=== PATIENT | female | born 1940 | race Caucasian/White ===

== ENCOUNTER → 2022-07-27 11:29 | Outpatient (BNVA) | payer MEDICARE, SELFPAY | PROVIDERS: Visit Provider Nurse Practitioner Family | DX: M25.511 Pain in right shoulder (principal); W19.XXXA Unspecified fall, initial encounter; Z68.27 Body mass index [BMI] 27.0-27.9, adult | CPT/HCPCS: 73030 ==

== ENCOUNTER → 2024-03-08 15:36 | Outpatient (BNVA) | payer MEDICARE, SELFPAY | PROVIDERS: PCP Nurse Practitioner Family; Visit Provider Nurse Practitioner Family | DX: R52 Pain, unspecified (principal); N39.0 Urinary tract infection, site not specified | CPT/HCPCS: 81000; 87086 ==

== ENCOUNTER → 2024-06-19 09:51 | Outpatient (BNVA) | payer MEDICARE, SELFPAY | PROVIDERS: PCP Nurse Practitioner Family; Visit Provider Nurse Practitioner Family | DX: J02.9 Acute pharyngitis, unspecified (principal); U07.1 COVID-19 | CPT/HCPCS: 87071; 87400; 87426; 87880 ==

== ENCOUNTER 2024-09-11 13:10 | Outpatient (CLI) | payer MEDICARE, SELFPAY ==
--- NOTE | 2024-09-11 13:23 | XR_ITS ---
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 FINDINGS: The L1-L4 bone mineral density measures 1.036 g/cm2. This corresponds to a T score score of -1.2 and Z score of 1.0. Left femoral neck bone mineral density measures 0.846 g/cm2. This corresponds to a T score of -1.3 an d Z score of 1.2. Right femoral neck bone mineral density measures 0.914 g/cm2. This corresponds to a T score -0.7of an d Z score of 1.8. Mean femoral neck bone mineral density measures 0.880 g/cm2. This corresponds to a T score of -1.0 an d Z score of 1.5. XR/XR DEXA axial skeleton* [id number] IMPRESSION: Osteopenia lumbar spine. Osteopenia femoral necks at the lower end of the range . Patient's FRAX calculated 10 year probability for major osteoporotic fracture i s 32.2% and osteoporotic hip fracture is 22.3%.
== END 2024-09-11 13:11 | disposition home or self-care (01) ==
PROVIDERS: PCP Nurse Practitioner Family; Visit Provider Family Medicine
DX: Z13.820 Encounter for screening for osteoporosis (principal); M81.0 Age-related osteoporosis without current pathological fracture; M85.80 Other specified disorders of bone density and structure, unspecified site
CPT/HCPCS: 77080

== ENCOUNTER 2024-10-11 13:09 | Outpatient (CLI) | payer MEDICARE, SELFPAY | END 2024-10-11 13:10 | disposition home or self-care (01) | LOC: LAB 13:14 | PROVIDERS: PCP Nurse Practitioner Family; Visit Provider Student in an Organized Health Care Education/Training Program | DX: G70.00 Myasthenia gravis without (acute) exacerbation (principal) | CPT/HCPCS: 83516; 83519; 86255 ==

== ENCOUNTER → 2024-11-27 11:05 | Outpatient (BNVA) | payer MEDICARE, SELFPAY | PROVIDERS: PCP Nurse Practitioner Family; Visit Provider Nurse Practitioner Family | DX: R35.0 Frequency of micturition (principal) | CPT/HCPCS: 81000 ==

== ENCOUNTER 2025-06-07 10:12 | Outpatient (CLI) | payer MEDICARE, SELFPAY ==
--- NOTE | 2025-06-07 10:33 | XR_ITS ---
WS: [id number] Lumbar spine, 3 views, 06/07/2025 Clinical Data: M54.50 - Low back pain, unspecified Comparison: None. Findings: No compression fractures or subluxation is seen. There is disc narrowing at L4- L5. Small osteophytes are present L1-L5. The transverse processes and SI joints are normal. There is a levoscoliosis. XR/XR lumbar spine 2-3V* [id number] Impression: 1. Disc narrowing at L4-L5. 2. Osteoarthritis L1-L5 with levoscoliosis.
--- NOTE | 2025-06-07 10:33 | XR_ITS ---
WS: [id number] Sacrum and coccyx, AP and lateral views, 06/07/2025 Clinical Data: M53.3 - Sacrococcygeal disorders, not elsewhere classified Comparison: None. Findings: No fractures or dislocations are seen. The SI joints and pubic symphysis are unremarkable. No bone destruction or erosion is seen. XR/XR coccyx 2V [id number] Impression: Negative sacrum and coccyx.
--- NOTE | 2025-06-07 10:33 | XR_ITS ---
WS: [id number] Thoracic spine, 3 views, 06/07/2025 Clinical Data: M54.6 - Pain in thoracic spine Comparison: None. Findings: No compression fractures are seen. The disc heights are normal. The paravertebral regions are normal. There is minimal osteoarthritis of all the thoracic vertebral bodies. There is a dextroscoliosis. XR/XR thoracic spine 3V* [id number] Impression: Minimal osteoarthritis of the thoracic vertebral bodies with dextroscoliosis.
== END 2025-06-07 10:13 | disposition home or self-care (01) ==
PROVIDERS: PCP Nurse Practitioner Family; Visit Provider Nurse Practitioner Family
DX: M53.3 Sacrococcygeal disorders, not elsewhere classified (principal); M41.24 Other idiopathic scoliosis, thoracic region; M15.9 Polyosteoarthritis, unspecified; M47.896 Other spondylosis, lumbar region; M51.26 Other intervertebral disc displacement, lumbar region
CPT/HCPCS: 72072; 72100; 72220